=== PATIENT | male | born 1985 | race Two or more races ===

== ENCOUNTER 2022-06-04 12:50 | Emergency (ER) | payer BC, OTHER ==
[~2022-06-04] VITALS: Ht 180.3 cm; Wt 80.9 kg
[2022-06-04 13:00] VITALS: BP 124/64
[2022-06-04] MEDS ORDERED: IBUPROFEN 800 MG TAB PO ONE (15:15)
[2022-06-04] MEDS ORDERED: ONDANSETRON ODT 4 MG TAB PO ONE (15:15)
[2022-06-04] MEDS ORDERED: SODIUM CHLORIDE 0.9% 1,000 ML IV ONE (15:15)
[2022-06-04] MEDS ORDERED: ACET-1158 PO (15:30)
[2022-06-04] MEDS ORDERED: DOXY-332 PO (15:30)
[2022-06-04] MEDS ORDERED: PRED20TA2 PO (15:30)
[2022-06-04] MEDS ORDERED: ONDA-144 PO (15:31)
== END 2022-06-04 19:24 | disposition home or self-care (01) ==
LOC: ER 12:50
DX: U07.1 COVID-19 (principal); J06.9 Acute upper respiratory infection, unspecified
CPT/HCPCS: 36415; 71046; 87426; 96360; 96361; 99284; J7030; Q0162